=== PATIENT | female | born 1945 ===

== ENCOUNTER → 2021-06-13 | Outpatient (REF) | LOC: M LAB LCGH 10:16 | PROVIDERS: ATTEND Physician Assistant | DX: E87.1 Hypo-osmolality and hyponatremia (principal); N39.3 Stress incontinence (female) (male) ==

== ENCOUNTER → 2021-06-15 | Outpatient (REF) | LOC: M LAB LCGH 12:19 | PROVIDERS: ATTEND Physician Assistant | DX: E87.1 Hypo-osmolality and hyponatremia (principal) ==

== ENCOUNTER → 2021-06-15 | Outpatient (REF) | LOC: M LAB REF 18:08 → M LAB LCGH 18:08 | PROVIDERS: ATTEND Physician Assistant | DX: E87.1 Hypo-osmolality and hyponatremia (principal) ==